=== PATIENT | female | born 1980 | race Caucasian/White ===

== ENCOUNTER 2018-07-14 16:40 | Emergency (ER) | payer OTHER ==
[~2018-07-14] VITALS: Ht 160 cm; Wt 73.5 kg
[~2018-07-14 16:40] MED LIST: AMOX1TAB12 PO; TUSSI PRES-B L120 M1 PO
== END 2018-07-14 20:06 | disposition home or self-care (01) ==
LOC: ER 16:40
DX: J40 Bronchitis, not specified as acute or chronic (principal)

== ENCOUNTER 2020-08-14 18:00 | Emergency (ER) | payer OTHER ==
[~2020-08-14] VITALS: Ht 160 cm; Wt 73.9 kg
[2020-08-14] MEDS ORDERED: ADVIL (18:43)
== END 2020-08-14 22:20 | disposition home or self-care (01) ==
LOC: ER 18:00
DX: M94.0 Chondrocostal junction syndrome [Tietze] (principal)

== ENCOUNTER 2020-12-30 18:09 | Emergency (ER) | payer OTHER ==
[~2020-12-30] VITALS: Ht 160 cm; Wt 72.6 kg
[~2020-12-30 18:09] MED LIST changes: +ADVIL
[2020-12-30] MEDS ORDERED: DICLOFENAC SODI75 MG PO (18:35)
[2020-12-30] MEDS ORDERED: BACTRIM DS TAB1 EACH PO (18:35)
== END 2020-12-30 19:20 | disposition home or self-care (01) ==
LOC: ER 18:09
DX: L02.414 Cutaneous abscess of left upper limb (principal)

== ENCOUNTER 2022-06-06 17:30 | Emergency (ER) | payer OTHER ==
[~2022-06-06] VITALS: Ht 160 cm; Wt 80.7 kg
[~2022-06-06 17:30] MED LIST changes: +BACTRIM DS TAB1 EACH PO; +DICLOFENAC SODI75 MG PO
[2022-06-06] MEDS ORDERED: BENZONATATE200 M1 PO (23:04)
[2022-06-06] MEDS ORDERED: MUCINEX1200 MG PO (23:04)
== END 2022-06-06 23:33 | disposition home or self-care (01) ==
LOC: ER 17:30
DX: B34.9 Viral infection, unspecified (principal); Z20.822 Contact with and (suspected) exposure to COVID-19

== ENCOUNTER 2025-04-22 15:11 | Emergency (ER) | payer OTHER ==
[~2025-04-22] VITALS: Ht 160 cm; Wt 69.9 kg
[~2025-04-22 15:11] MED LIST changes: +BENZONATATE200 M1 PO; +MUCINEX1200 MG PO
[2025-04-22] MEDS ORDERED: ZESTRIL20 MG PO (15:53)
[2025-04-22] MEDS ORDERED: METHYLPREDNISOLONE SOD SUCC 40 MG VIAL ONE (16:54)
[2025-04-22] MEDS ORDERED: CEFTRIAXONE SODIUM 1,000 MG VIAL ONE (16:55)
[2025-04-22] MEDS ORDERED: LIDOCAINE HCL 1% 10ML VIAL ONE (16:55)
[2025-04-22] MEDS ORDERED: METHYLPREDNISOLONE SOD SUCC 40 MG VIAL IM ONE (17:00)
[2025-04-22] MEDS ORDERED: BENZONATATE 200 MG CAPSULE PO ONE (17:00)
[2025-04-22] MEDS ORDERED: CEFTRIAXONE SODIUM 1,000 MG VIAL IM ONE (17:00)
[2025-04-22 17:20] LABS: BASO % 0.4 % (0.1-1.2); EOS # 0.02 (0.04-0.54); EOS % 0.4 % (0.7-7.0); HEMATOCRIT 28.7 % (34.1-44.9); LYMPH # 0.72 (1.18-3.74); LYMPH % 14.4 % (19.3-53.1); MEAN CORPUSCULAR HEMOGLOBIN 21.4 pg (25.6-32.2); MONO # 0.72 (0.24-0.82); NEUT # 3.52 (1.56-6.13); NEUT % 70.2 % (34.0-71.1); PLATELET COUNT 331 K/uL (163-369); RED BLOOD COUNT 4.02 M/uL (3.93-5.22); RED CELL DISTRIBUTION WIDTH 15.7 % (11.6-14.4)
[2025-04-22 17:26] LABS: HEMOGLOBIN 8.6 g/dL (11.2-15.7); MONO % 14.4 % (4.7-12.5)
[2025-04-22 18:04] LABS: COVID-19 AG NEGATIVE (NEGATIVE)
[2025-04-22 18:12] LABS: INFLUENZA B AG NEGATIVE (NEGATIVE)
[2025-04-22 18:13] LABS: INFLUENZA A AG POSITIVE (NEGATIVE)
[2025-04-22] MEDS ORDERED: OSEL75CA PO (18:15)
[2025-04-22] MEDS ORDERED: LEVALBUTER0.63 MG/3 IH (18:15)
[2025-04-22] MEDS ORDERED: BENZONATATE200 M1 PO (18:15)
[2025-04-22] MEDS ORDERED: PEPCID AC20 MG PO (18:15)
== END 2025-04-22 19:35 | disposition home or self-care (01) ==
LOC: ER 15:46
PROVIDERS: General Practice
DX: J00 Acute nasopharyngitis [common cold] (principal); R05.9 Cough, unspecified; Z20.822 Contact with and (suspected) exposure to COVID-19; I10 Essential (primary) hypertension